=== PATIENT | female | born 1950 | race Caucasian/White ===

== ENCOUNTER 2016-07-30 01:30 | Emergency (ER) | payer MEDICARE, BC ==
[2016-07-30] MEDS ORDERED: NITROGLYCERIN OINT 1 INCH/GM PACKET TOPICAL STA (02:26)
[2016-07-30 02:48] LABS: Basophils # (A) 0.1 k/uL (0-0.2); Basophils % (A) 1 %; CH 30.4; Eosinophils # (A) 0.3 k/uL (0-0.7); Eosinophils % (A) 4 %; HDW 2.36; HGB 15.7 gm/dL (11.4-16.0); Luc # (Auto) 0.26; Luc % (Auto) 4; Lymphocytes # (A) 1.8 k/uL (1.0-4.8); Lymphocytes % (A) 24 %; MCHC 33.4 g/dL (31.0-37.0); MCV 89.8 fL (80.0-100.0); Mean Platelet Volume 7.8; Monocytes # (A) 0.6 k/uL (0-1.0); Monocytes % (A) 8 %; Neutrophils # (A) 4.3 k/uL (1.3-7.7); Neutrophils % (A) 60 %; RBC 5.24 m/uL (3.80-5.40); RDW 12.6 % (11.5-15.5); WBC 7.2 k/uL (3.8-10.6); WBC (Perox) 7.19
--- NOTE | 2016-07-30 03:15 | ED ---
Chest Pain HPI - General Chief Complaint: Chest Pain Stated Complaint: chest pains Time Seen by Provider: 07/30/16 01:56 Source: patient Mode of arrival: wheelchair Limitations: no limitations - History of Present Illness Initial Comments: She has abdominal pain as well as chest pain off and on for the last 1 month she was about a month ago in [facility]. She denies any cough denies any nausea no vomiting no cold sweats denies any fever or chills denies any trauma to the chest. She does complain about some discomfort in the epigastric area as well as in now middle of the chest saying it does get worse when she takes a deep breath his review of system is unremarkable - Related Data Home Medications Medication Instructions Recorded Confirmed Baclofen [Lioresal] 5 mg PO TID 07/30/16 07/30/16 Esomeprazole Magnesium [NexIUM] 20 mg PO DAILY 07/30/16 07/30/16 Furosemide [Lasix] 5 mg PO DAILY 07/30/16 07/30/16 Solifenacin Succinate [Vesicare] 5 mg PO 07/30/16 Allergies Allergy/AdvReac Type Severity Reaction Status Date / Time codeine Allergy Unknown Verified 07/30/16 01:38 Review of Systems ROS Statement: Those systems with pertinent positive or pertinent negative responses have been documented in the HPI. ROS Other: All systems not noted in ROS Statement are negative. EKG Findings - EKG Comments: EKG Findings:: Review of this EKG shows normal sinus rhythm ventricular rate is 65 NJ interval is 174 QRS duration is 86 QT/QTc is 428/440 fall no recent T- wave inversion and numb V1 and V2 no ST elevation or ST depression noticed in of the leads Past Medical History Additional Past Medical History / Comment(s): parapalegic History of Any Multi-Drug Resistant Organisms: None Reported Past Surgical History: Appendectomy, Cholecystectomy, Hysterectomy Additional Past Surgical History / Comment(s): right leg vein stripping Past Psychological History: No Psychological Hx Reported Smoking Status: Former smoker Past Alcohol Use History: None Reported Past Drug Use History: None Reported General Exam - General Exam Comments Initial Comments: General: The patient is awake and alert, in no distress, and does not appear acutely ill. Skin: Skin is warm and dry and no rashes or lesions are noted. Eye: Pupils are equal, round and reactive to light, extra-ocular movements are intact; there is normal conjunctiva bilaterally. Ears, nose, mouth and throat: There are moist mucous membranes and no oral lesions. Neck: The neck is supple, there is no tenderness or JVD. Cardiovascular: There is a regular rate and rhythm. No murmur, rub or gallop is appreciated. Respiratory: To auscultation bilateral, no wheezing no rhonchi no distress respiratory alvarez noticed Gastrointestinal: Mild tender in epigastric area, positive bowel sounds no guarding no rebounds Back: There is no tenderness to palpation in the midline. There is no obvious deformity. Musculoskeletal: Normal ROM, no tenderness, There is no pedal edema. There is no calf tenderness or swelling. No cords were appreciated. Neurological: CN II-XII intact, Cranial nerves III through XII are intact. There are no obvious motor or sensory deficits. Coordination appears grossly intact. Speech is normal. Psychiatric: Cooperative, appropriate mood & affect, normal judgment. Limitations: no limitations Course Vital Signs 07/30/16 01:33 Temperature 97.9 F Pulse Rate 76 Respiratory 18 Rate Blood Pressure 127/64 O2 Sat by Pulse 94 L Oximetry She was reassessed 3 times last time she was reassessed there was a 4:15 the morning totally pain-free d-dimer, CBC, compressive metabolic panel, troponin, LFTs, chest x-ray and KUB are unremarkable, considering her risk factors she was offered to stay in the hospital for observation and serial cardiac markers the opportunity to see the youth support worker she preferred to see an outpatient and she said Dr. Hernandez is doing a stress test in next few days she is quite content with that and she also promises she will call the youth support worker but she did not like the idea to come in for serial cardiac markers as observation in patient Disposition Clinical Impression: Chest pain, Epigastric pain Disposition: HOME SELF-CARE Condition: Good Instructions: Chest Pain (ED) Additional Instructions: She is advised to return to the ER if symptoms get worse, otherwise call cardiology office first thing in the morning to set up a appointment with him Referrals: Osbaldo Hernandez MD [Primary Care Provider] - 1-2 days Mellissa Crespo MD [STAFF PHYSICIAN] - 1-2 days
--- NOTE | 2016-07-30 03:17 | XR ---
EXAM: XR Chest, 2 Views. CLINICAL HISTORY: Reason: Chest Pain TECHNIQUE: Frontal and lateral views of the chest. COMPARISON: No relevant prior studies available. FINDINGS: Limitations: Examination is inherently limited by the patient's body habitus. Lungs: The lungs are grossly free of focal infiltrate. Pleural space: Unremarkable. No pneumothorax. Heart: There is mild cardiomegaly. Mediastinum: Mild aortic ectasia. Bones/joints: Osteopenia and multilevel degenerative changes. IMPRESSION: Limited, without definite acute intrathoracic abnormality seen.
--- NOTE | 2016-07-30 03:19 | XR ---
EXAM: XR Abdomen, 1 View. CLINICAL HISTORY: Reason: Pain TECHNIQUE: Frontal supine view of the abdomen/pelvis. COMPARISON: No relevant prior studies available. FINDINGS: Limitations: Examination is inherently limited by the patient's body habitus. 2 images were provided, the lower is labeled supine, the other centered more superiorly is not labeled as to positioning. Intraperitoneal space: There is some air seen within colon, admixed with stool in the right colon and within the pelvis. No grossly dilated loops or gross free air seen on this limited exam. Gastrointestinal tract: See above. Organs: Right upper quadrant clips suggest cholecystectomy. Bones/joints: Leftward curvature of the upper lumbar spine with osteopenia multilevel degenerative changes. Smooth marginated contour deformity of several right anterior lower ribs may be the result of old healed fractures. IMPRESSION: Limited exam, without gross evidence of intestinal obstruction seen. The findings could be correlated and followed clinically to guide further imaging follow-up if clinically indicated.
[2016-07-30 03:20] LABS: Creatine Kinase 80 U/L (30-135)
[2016-07-30 03:32] LABS: Creatine Kinase MB 1.2 ng/mL (0.0-2.4); Troponin I <0.012 ng/mL (0.000-0.034)
[2016-07-30 03:53] LABS: ALT 40 U/L (9-52); AST 35 U/L (14-36); Alkaline Phosphatase 106 U/L (38-126); Amylase 36 U/L (30-110); Anion Gap 10 mmol/L; Blood Urea Nitrogen 11 mg/dL (7-17); Calcium 9.2 mg/dL (8.4-10.2); Carbon Dioxide 23 mmol/L (22-30); Chloride 107 mmol/L (98-107); Digoxin <0.4 ng/mL; Glucose 100 mg/dL (74-99); Non-African American GFR(MDRD) >60 (>60 ml/min/1.73 sqM); Potassium 4.2 mmol/L (3.5-5.1); Sodium 140 mmol/L (137-145); Total Bilirubin 0.6 mg/dL (0.2-1.3); Total Protein 6.8 g/dL (6.3-8.2)
[2016-07-30 04:02] LABS: Partial Thromboplastin Time 24.3 sec (22.0-30.0); Prothrombin Time 10.3 sec (9.0-12.0)
[2016-07-30 05:25] VITALS: BP 129/77; PULSE 74; RESP 16; TEMP 98.1
== END 2016-07-30 05:24 | disposition home or self-care (01) ==
LOC: EC 01:30
DX: R07.9 Chest pain, unspecified (principal); R10.13 Epigastric pain; Z79.899 Other long term (current) drug therapy; Z87.891 Personal history of nicotine dependence; Z88.5 Allergy status to narcotic agent; G82.20 Paraplegia, unspecified
CPT/HCPCS: 36415; 71020; 74000; 80053; 80162; 82150; 82550; 82553; 83690; 83735; 83880; 84484; 85025; 85379; 85610; 85730; 93005; 99285

== ENCOUNTER → 2016-08-09 | Outpatient (CLI) | payer MEDICARE, BC ==
[~2016-08-09] MED LIST: REGADENOSON 0.4 MG/5 ML SYRINGE IV ONE
--- NOTE | 2016-08-09 12:11 | NM ---
EXAMINATION TYPE: NM stress lexiscan cardiolite DATE OF EXAM: 08/09/2016 11:54 AM COMPARISON: Nuclear medicine Lexiscan stress test December 17, 2011. HISTORY: Chest pain not further specified per order. TECHNIQUE: After the intravenous administration of 10.3 mCi Tc 99m Sestamibi - Cardiolite resting SP ECT images acquired 70 minutes post injection. The patient received 0.4mg Lexiscan, 27.4 mCi Tc 99m Sestamibi - Stress images obtained [address] injection FINDINGS: Review of stress and rest SPECT images demonstrates poor uptake involving the apex on rest and stress SPECT images suggestive of old infarct at this level. There is no convincing evidence for reversibl e ischemia. Gated analysis shows normal wall motion with an estimated left ventricular ejection fract ion of 56 % on rest images. IMPRESSION: No convincing scintigraphic evidence for reversible ischemia.
--- NOTE | 2016-08-09 14:22 | EST ---
DATE OF SERVICE: AGE: 65Y SEX: F HT: 65" WT: 165 lbs. Protocol Ousmane: Other: Stage: Dur. of Exercise: *Heart Rate Blood Pressure *Rest: 70 Rest: 149/97 * *Max. Achieved: 107 Maximum BP: 144/84 85% PMHR: 100% PMHR: *METS: INDICATIONS: Chest pain. MEDICATIONS: See list. Lexiscan Cardiolite study was performed. Peak heart rate of 105 was achieved. Maximum blood pressure 144/84 mm of mercury was noted. Resting EKG shows normal sinus rhythm with normal PA interval and QRS duration and normal ST-T waves. No ST segment depression suggestive of ischemia is noted. The results of the nuclear study will follow.
== END | disposition home or self-care (01) ==
LOC: RADNMMAIN 09:01
PROVIDERS: ATTEND Internal Medicine
DX: R07.9 Chest pain, unspecified (principal)
CPT/HCPCS: 93017; 78452; A9500; J2785

== ENCOUNTER 2017-04-07 12:37 | Emergency (ER) | payer MEDICARE, BC ==
[2017-04-07] MEDS ORDERED: SODIUM CHLORIDE 0.9% 500 ML IV STA (12:52)
[2017-04-07] MEDS ORDERED: RX INFO: IV CONTRAST WAS GIVEN 1 EACH MISC MISCELLANE PRN (13:05)
[2017-04-07 13:37] LABS: Basophils # (A) 0.1 k/uL (0-0.2); Basophils % (A) 1 %; CH 29.7; CHCM 33.1; Eosinophils # (A) 0.3 k/uL (0-0.7); Eosinophils % (A) 3 %; HCT 48.3 % (34.0-46.0); HGB 15.4 gm/dL (11.4-16.0); Luc # (Auto) 0.18; Luc % (Auto) 2; Lymphocytes # (A) 1.3 k/uL (1.0-4.8); Lymphocytes % (A) 14 %; MCH 28.8 pg (25.0-35.0); MCHC 31.9 g/dL (31.0-37.0); MCV 90.2 fL (80.0-100.0); Mean Platelet Volume 7.3; Monocytes # (A) 0.8 k/uL (0-1.0); Monocytes % (A) 9 %; Neutrophils # (A) 6.5 k/uL (1.3-7.7); Neutrophils % (A) 72 %; RBC 5.36 m/uL (3.80-5.40); RDW 14.4 % (11.5-15.5); WBC (Perox) 9.25
[2017-04-07 13:46] LABS: ALT 42 U/L (9-52); AST 42 U/L (14-36); Alkaline Phosphatase 121 U/L (38-126); Amorphous Sediment,Urine Rare /hpf; Amylase 42 U/L (30-110); Anion Gap 11 mmol/L; Appearance,Urine Cloudy (Clear); Bacteria,Urine Rare /hpf; Bilirubin,Urine Negative (Negative); Blood Urea Nitrogen 10 mg/dL (7-17); Calcium 9.5 mg/dL (8.4-10.2); Calcium Oxalate Crystals,Urine Occasional /hpf; Carbon Dioxide 23 mmol/L (22-30); Chloride 106 mmol/L (98-107); Glucose 99 mg/dL (74-99); Glucose,Urine (UA) Negative (Negative); Ketones,Urine Trace (Negative); Leukocyte Esterase,Urine Moderate (Negative); Mucus,Urine Rare /hpf; Nitrite,Urine Negative (Negative); Non-African American GFR(MDRD) >60 (>60 ml/min/1.73 sqM); Particle Count 55220; Potassium 4.3 mmol/L (3.5-5.1); Protein,Urine Trace (Negative); RBC,Urine <1 /hpf (0-5); Sodium 140 mmol/L (137-145); Specific Gravity,Urine 1.015 (1.001-1.035); Squamous Epithelial Cell,Urine 2 /hpf (0-4); Total Bilirubin 0.6 mg/dL (0.2-1.3); Total Protein 7.4 g/dL (6.3-8.2); Triple Phosphate Crystal,Urine Rare /hpf; UA Billing (MACRO vs. MICRO) MICRO; Urobilinogen,Urine <2.0 mg/dL (<2.0); WBC,Urine 2 /hpf (0-5)
[2017-04-07 13:49] LABS: Partial Thromboplastin Time 24.1 sec (22.0-30.0); Prothrombin Time 10.5 sec (9.0-12.0)
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
[2017-04-07 14:22] VITALS: RESP 18
--- NOTE | 2017-04-07 15:06 | CT ---
EXAMINATION TYPE: CT abdomen pelvis w con DATE OF EXAM: 04/07/2017 HISTORY: Left side abdominal pain x1 week. CT DLP: 1219.7mGycm Automated Exposure Control for Dose Reduction was Utilized. CONTRAST: CT scan of the abdomen and pelvis is performed without oral but with IV Contrast, patient injected wi th 100 mL of Omnipaque 300. COMPARISON: None. FINDINGS: LUNG BASES: There is mild pleural thickening medially left lung base there is some patchy bibasilar l inear scarring and/or atelectasis. There is posterior medial pleural thickening or atelectasis right lung base. LIVER/GB: Cholecystectomy clips are seen. PANCREAS: There is fairly moderate fat replaced atrophy at level of inferior head and uncinate proces s. SPLEEN: No significant abnormality is seen. ADRENALS: No significant abnormality is seen. KIDNEYS: There is exophytic simple appearing 5.8 cm cyst lower pole level right kidney. Perry cathete r is seen within decompressed bladder. BOWEL: There is small to moderate size hiatal hernia. UTERUS/ADNEXA: Uterus is surgically absent or markedly atrophic in appearance. LYMPH NODES: No greater than 1cm abdominal or pelvic lymph nodes are appreciated. There is mild hazin ess or fat stranding in the left-sided mesentery with few slightly prominent but tiny mesenteric lymp h nodes. OSSEOUS STRUCTURES: Osseous structures are demineralized. Underlying scoliosis is present. There is l arge bridging osteophyte L1-L2 level. There is mild height loss L1 level. There is mild/moderate heig ht loss L2 level. 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 OTHER: There is mild calcified plaque of aorta extending into branch vessels. IMPRESSION: 1. There is left-sided isidra mesentery appearance consistent with mesenteric panniculitis, differenti al includes infectious and inflammatory etiologies. No well-formed fluid collection or abscess is se en.
[2017-04-07 15:24] VITALS: BP 124/67; PULSE 86; TEMP 97.8
== END 2017-04-07 15:40 | disposition home or self-care (01) ==
LOC: EC 12:37
DX: K65.4 Sclerosing mesenteritis (principal); K21.9 Gastro-esophageal reflux disease without esophagitis; Z90.49 Acquired absence of other specified parts of digestive tract; Z87.891 Personal history of nicotine dependence; Z88.0 Allergy status to penicillin; Z88.5 Allergy status to narcotic agent; Z88.6 Allergy status to analgesic agent; Z91.040 Latex allergy status; Z88.3 Allergy status to other anti-infective agents; Z88.8 Allergy status to other drugs, medicaments and biological substances; Z91.09 Other allergy status, other than to drugs and biological substances; Z79.899 Other long term (current) drug therapy
CPT/HCPCS: 36415; 80053; 82150; 83605; 83690; 85025; 85610; 85730; 81001; 74177; 99284; 96360; Q9967

== ENCOUNTER 2018-11-26 12:35 | Inpatient (IN) | payer BC, MEDICARE ==
[2018-11-26] MEDS ORDERED: NITROGLYCERIN SL TABS 0.4 MG TAB SUBLINGUAL STA ×3 (13:00)
[2018-11-26] MEDS ORDERED: ASPIRIN 81 MG PO STA (13:00)
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
[2018-11-26 13:25] LABS: Basophils # (A) 0.1 k/uL (0-0.2); Basophils % (A) 1 %; Eosinophils # (A) 0.5 k/uL (0-0.7); Eosinophils % (A) 7 %; HCT 46.9 % (34.0-46.0); HGB 15.2 gm/dL (11.4-16.0); Lymphocytes # (A) 1.7 k/uL (1.0-4.8); Lymphocytes % (A) 23 %; MCH 28.5 pg (25.0-35.0); MCHC 32.5 g/dL (31.0-37.0); MCV 87.7 fL (80.0-100.0); Mean Platelet Volume 6.5; Monocytes # (A) 0.6 k/uL (0-1.0); Monocytes % (A) 9 %; Neutrophils % (A) 56 %; Platelet Count 269 k/uL (150-450); RBC 5.34 m/uL (3.80-5.40); RDW 13.1 % (11.5-15.5); WBC 7.1 k/uL (3.8-10.6)
--- NOTE | 2018-11-26 13:31 | XR ---
EXAMINATION TYPE: XR chest 2V DATE OF EXAM: 11/26/2018 HISTORY: Chest Pain. REFERENCE: Previous study dated 07/30/2016. FINDINGS: Heart size upper limits of normal. There is thickening of the minor fissure on the right. T here is atelectatic change at both lung bases. Pleural spaces appear clear. IMPRESSION: 1. BORDERLINE CARDIOMEGALY. 2. BIBASILAR ATELECTASIS.
[2018-11-26 13:40] LABS: ALT 28 U/L (9-52); AST 35 U/L (14-36); African American GFR (CKD) >90 (>60 ml/min/1.73 sqM); Albumin 4.2 g/dL (3.5-5.0); Alkaline Phosphatase 116 U/L (38-126); Anion Gap 8 mmol/L; Blood Urea Nitrogen 12 mg/dL (7-17); Calcium 9.4 mg/dL (8.4-10.2); Carbon Dioxide 27 mmol/L (22-30); Chloride 105 mmol/L (98-107); Glucose 108 mg/dL (74-99); Magnesium 2.3 mg/dL (1.6-2.3); Potassium 4.5 mmol/L (3.5-5.1); Sodium 140 mmol/L (137-145); Total Bilirubin 0.6 mg/dL (0.2-1.3); Total Protein 7.4 g/dL (6.3-8.2)
[2018-11-26 14:13] LABS: Partial Thromboplastin Time 24.1 sec (22.0-30.0); Prothrombin Time 10.5 sec (9.0-12.0)
[2018-11-26 14:23] LABS: D-Dimer 0.69 mg/L FEU (<0.60)
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
[2018-11-26] MEDS ORDERED: FUROSEMIDE 20 MG TAB PO PRN (15:22)
[2018-11-26] MEDS ORDERED: methylPREDNISolone SOD SUCCI 125 MG/2 ML VIAL IV STA (15:29)
[2018-11-26] MEDS ORDERED: FAMOTIDINE 20 MG/2 ML VIAL IV STA (15:29)
[2018-11-26] MEDS ORDERED: diphenhydrAMINE 50 MG/ML 1 ML VIAL IVP STA (15:29)
[2018-11-26] MEDS ORDERED: NITROGLYCERIN SL TABS 0.4 MG TAB SUBLINGUAL PRN (15:30)
--- NOTE | 2018-11-26 17:20 | CT ---
EXAMINATION TYPE: CT angio chest DATE OF EXAM: 11/26/2018 4:49 PM COMPARISON: None HISTORY: chest pain CT DLP: 537.1 mGycm Automated exposure control for dose reduction was used. CONTRAST: CTA scan of the thorax is performed with IV Contrast, patient injected with 87cc mL of Isovue 370, pu lmonary embolism protocol. There are 3-D post processed images.. FINDINGS: There is a large hiatal hernia. There is patchy atelectasis and fibrotic changes at the lung bases. H eart size is top normal. There is no pericardial effusion. There are a few mediastinal and peritracheal lymph nodes that measure up to 1.5 cm. There are right b ronchial lymph nodes that measure 1.7 cm. There is normal contrast opacification of the pulmonary arteries. I see no filling defects. Thoracic aorta shows no dissection. There is 4.2 cm aneurysm of the ascending aorta. There is compression deformity of L1 and L2 up to 50%. There is 70% compression deformity of T8. Ther e is osteopenia. IMPRESSION: NO EVIDENCE OF PULMONARY EMBOLISM. MEDIASTINAL AND BRONCHIAL ADENOPATHY. MILD CARDIOMEGALY. LARGE HIATAL HERNIA. MULTIPLE COMPRESSION FRACTURES.
[2018-11-26] MEDS: NITROGLYCERIN OINT 1 INCH/GM PACKET TOPICAL SCH ×2 (19:05→22:09)
[2018-11-26] MEDS: BACLOFEN 10 MG TAB PO SCH (20:30)
[2018-11-26] MEDS ORDERED: MAG HYDROX/AL HYDROX/SIMETH 30 ML CUP PO PRN (21:54)
[2018-11-26] MEDS: PANTOPRAZOLE 40 MG TABLET PO SCH (22:09)
[2018-11-27 03:32] LABS: Cholesterol 164 mg/dL (<200); HDL Cholesterol 46 mg/dL (40-60); LDL Cholesterol,Calculated 88 mg/dL (0-99); Triglycerides 152 mg/dL (<150)
[2018-11-27] MEDS: PANTOPRAZOLE 40 MG TABLET PO SCH (05:58)
[2018-11-27] MEDS: NITROGLYCERIN OINT 1 INCH/GM PACKET TOPICAL SCH ×4 (05:58→22:21)
[2018-11-27] MEDS: ASPIRIN 325 MG TAB PO SCH (08:29)
[2018-11-27] MEDS: OXYBUTYNIN XL 5 MG TAB.ER.24 PO SCH (08:29)
[2018-11-27] MEDS: BACLOFEN 10 MG TAB PO SCH ×2 (08:29→20:07)
[2018-11-27] MEDS: ASCORBIC ACID 500 MG TAB PO SCH (08:29)
[2018-11-27] MEDS ORDERED: HYDROmorphone 1 MG/ML 1 ML SYRINGE IVP PRN (09:30)
[2018-11-27] MEDS ORDERED: HYDROmorphone 0.5 MG/0.5 ML SYRINGE IVP PRN (09:30)
[2018-11-27] MEDS: IOPAMIDOL-300 CONTRAST 30 ML VIAL (ORAL USE) PO PRN ×2 (09:56→11:09)
[2018-11-27 10:00] LABS: HCT 43.4 % (34.0-46.0); HGB 14.6 gm/dL (11.4-16.0); MCHC 33.7 g/dL (31.0-37.0); Mean Platelet Volume 6.7; Platelet Count 261 k/uL (150-450); RBC 4.87 m/uL (3.80-5.40); RDW 13.2 % (11.5-15.5); WBC 12.3 k/uL (3.8-10.6)
[2018-11-27 10:11] LABS: ALT 29 U/L (9-52); AST 35 U/L (14-36); African American GFR (CKD) >90 (>60 ml/min/1.73 sqM); Albumin 3.7 g/dL (3.5-5.0); Alkaline Phosphatase 114 U/L (38-126); Anion Gap 7 mmol/L; Blood Urea Nitrogen 9 mg/dL (7-17); Calcium 9.2 mg/dL (8.4-10.2); Carbon Dioxide 26 mmol/L (22-30); Chloride 107 mmol/L (98-107); Glucose 97 mg/dL (74-99); Lipase 35 U/L (23-300); Potassium 4.1 mmol/L (3.5-5.1); Sodium 140 mmol/L (137-145); Total Bilirubin 0.8 mg/dL (0.2-1.3); Total Protein 6.6 g/dL (6.3-8.2)
--- NOTE | 2018-11-27 12:22 | CT ---
EXAMINATION TYPE: CT abdomen pelvis wo con DATE OF EXAM: 11/27/2018 COMPARISON: None HISTORY: 68-year-old female Chest pain, Fullness left umbilicus CT DLP: 757.9 mGycm. Automated exposure control for dose reduction was used. TECHNIQUE: Contiguous axial scanning of the abdomen and pelvis without IV contrast. Coronal and sagit edith reconstructions performed. FINDINGS: Heart normal size without pericardial effusion. Focal volume loss posteromedial right base probably s ome type of chronic postinflammatory sequela. No pleural effusion. There is a large hiatal hernia containing approximately a third to half of the stomach. Along the right lower paraesophageal region, there is a 3.9 x 2.1 cm ovoid area of soft tissue densit y, reference axial image 7 and coronal image 70. Noncontrast appearance of the liver, adrenal glands, spleen, and atrophic pancreas shows no gross abn ormality. 4 mm nonobstructive right renal calculus. There is a lobulated cyst at the right lower pole measuring up to 6.9 cm. No hydronephrosis is identified. There is some calcification seen along the course of the right urete r suspected direct represent adjacent phleboliths rather than ureteral calculi given the lack of hydr onephrosis. Nonobstructive 2 mm left renal calculus. Artifacts due to patient's large body habitus and electronic device within the field of view casting metal hardware artifact. Mild atherosclerotic calcifications abdominal aorta without aneurysm. No dilated small bowel, free fluid, or free air. No mesenteric or retroperitoneal lymphadenopathy. Mild Central isidra mesentery. Again, no lymphadenopathy seen. Moderate stool burden. No pericolonic inflammatory change. Oral contrast progressed to the cecum. Multiple pelvic phleboliths. Perry catheter is present in the bladder. There is mild circumferential bladder wall thickening. Could represent chronic bladder wall hypertrophy. Some intraluminal air like ly from instrumentation. Uterus surgically absent. Neither ovary is visualized. No abnormal fluid col lection in the pelvis or pelvic lymphadenopathy. There is a levoconvex scoliosis. Vertebral compression deformities of L2 and T8. Additional superior endplate deformity of L1. Findings compatible with age indeterminate compression injuries, likely chr onic given the lack of any paravertebral soft tissue swelling. IMPRESSION: 1. Bilateral nonobstructive renal calculi measuring up to 4 mm. Punctate calcifications are present along the course of the right ureter, felt to represent adjacent phleboliths rather than ureteral rajinder culi given the lack of hydronephrosis. 2. Mild central isidra mesentery is nonspecific but may be seen with mesenteric panniculitis. 3 - 6 m ont follow-up CT can reassess. 3. Moderate to large size hiatal hernia involving approximately third to half of the stomach. 4. Ovoid 3.9 x 2.1 cm soft tissue density in the lower right paraesophageal region. Some entrapped, herniated mesenteric fluid or abnormal lymphadenopathy are in the differential. Consider CT chest wit hout and with contrast to assess for any potential enhancement. 5. Mild circumferential bladder wall thickening. Correlate to exclude cystitis. A Perry catheter is in place.
[2018-11-27] MEDS ORDERED: ACETAMINOPHEN TAB 325 MG TAB PO PRN (14:29)
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
[2018-11-28] MEDS: NITROGLYCERIN OINT 1 INCH/GM PACKET TOPICAL SCH ×4 (04:46→22:16)
[2018-11-28 06:44] LABS: HCT 42.4 % (34.0-46.0); HGB 13.6 gm/dL (11.4-16.0); MCV 90.5 fL (80.0-100.0); Mean Platelet Volume 7.1; Platelet Count 248 k/uL (150-450); RBC 4.69 m/uL (3.80-5.40); RDW 13.2 % (11.5-15.5); WBC 8.3 k/uL (3.8-10.6)
[2018-11-28 06:52] LABS: ALT 25 U/L (9-52); AST 34 U/L (14-36); African American GFR (CKD) >90 (>60 ml/min/1.73 sqM); Albumin 3.4 g/dL (3.5-5.0); Alkaline Phosphatase 98 U/L (38-126); Anion Gap 6 mmol/L; Blood Urea Nitrogen 9 mg/dL (7-17); Calcium 8.7 mg/dL (8.4-10.2); Carbon Dioxide 26 mmol/L (22-30); Chloride 108 mmol/L (98-107); Glucose 94 mg/dL (74-99); Potassium 3.9 mmol/L (3.5-5.1); Sodium 140 mmol/L (137-145); Total Bilirubin 0.7 mg/dL (0.2-1.3); Total Protein 6.1 g/dL (6.3-8.2)
[2018-11-28] MEDS: PANTOPRAZOLE 40 MG TABLET PO SCH (07:44)
[2018-11-28] MEDS: ASCORBIC ACID 500 MG TAB PO SCH (07:44)
[2018-11-28] MEDS: BACLOFEN 10 MG TAB PO SCH ×2 (07:44→15:46)
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
[2018-11-28] MEDS ORDERED: LIDOCAINE 1% INJ 10MG/ML (20 ML MDV) ONE (11:58)
[2018-11-28] MEDS ORDERED: PROPOFOL 10 MG/ML 20 ML VIAL IV ONE (11:58)
[2018-11-28] MEDS ORDERED: LACTATED RINGERS 1,000 ML IV ONE (12:03)
--- NOTE | 2018-11-28 12:20 | P.OP ---
Date of Procedure: 11/28/18 Preoperative Diagnosis: GERD Hiatal hernia Postoperative Diagnosis: GERD Hiatal hernia Procedure(s) Performed: EGD Anesthesia: MAC Surgeon: Bowen Amato Pathology: other (Antrum) Condition: stable Disposition: PACU Description of Procedure: The patient's placed on the endoscopy table in the lateral position. She received IV sedation. The gastroscope placed oropharynx passed in the esophagus and into the stomach. Scope was placed through the pylorus. The first and second portion of the duodenum appeared normal. The scope was then brought back the antrum and this appeared inflamed a biopsies performed. The scope was then retroflexed and there was a large hiatal hernia seen. Approximately half is some appeared to be in the intrathoracic position. The GE junction was at 33 cm. The distal esophagus appeared inflamed. The proximal esophagus appeared normal. Scope was withdrawn for patient.
[2018-11-28] MEDS: ASPIRIN 325 MG TAB PO SCH (15:46)
[2018-11-28] MEDS: OXYBUTYNIN XL 5 MG TAB.ER.24 PO SCH (15:46)
[2018-11-29] MEDS: NITROGLYCERIN OINT 1 INCH/GM PACKET TOPICAL SCH ×2 (04:26→11:16)
[2018-11-29] MEDS: PANTOPRAZOLE 40 MG TABLET PO SCH (07:02)
[2018-11-29 07:38] LABS: Basophils # (A) 0.1 k/uL (0-0.2); Basophils % (A) 1 %; Eosinophils # (A) 0.5 k/uL (0-0.7); Eosinophils % (A) 7 %; HCT 46.6 % (34.0-46.0); HGB 14.8 gm/dL (11.4-16.0); Lymphocytes # (A) 1.5 k/uL (1.0-4.8); Lymphocytes % (A) 20 %; MCH 28.8 pg (25.0-35.0); MCHC 31.8 g/dL (31.0-37.0); MCV 90.7 fL (80.0-100.0); Mean Platelet Volume 6.9; Monocytes # (A) 0.7 k/uL (0-1.0); Monocytes % (A) 9 %; Neutrophils # (A) 4.6 k/uL (1.3-7.7); Neutrophils % (A) 61 %; Platelet Count 265 k/uL (150-450); RBC 5.13 m/uL (3.80-5.40); RDW 13.3 % (11.5-15.5); WBC 7.6 k/uL (3.8-10.6)
[2018-11-29 07:59] LABS: ALT 27 U/L (9-52); AST 40 U/L (14-36); African American GFR (CKD) >90 (>60 ml/min/1.73 sqM); Albumin 3.5 g/dL (3.5-5.0); Alkaline Phosphatase 102 U/L (38-126); Anion Gap 9 mmol/L; Blood Urea Nitrogen 10 mg/dL (7-17); Calcium 8.8 mg/dL (8.4-10.2); Carbon Dioxide 24 mmol/L (22-30); Chloride 106 mmol/L (98-107); Glucose 84 mg/dL (74-99); Potassium 4.2 mmol/L (3.5-5.1); Sodium 139 mmol/L (137-145); Total Bilirubin 0.8 mg/dL (0.2-1.3); Total Protein 6.5 g/dL (6.3-8.2)
[2018-11-29] MEDS: ASCORBIC ACID 500 MG TAB PO SCH (08:35)
[2018-11-29] MEDS: ASPIRIN 325 MG TAB PO SCH (08:35)
[2018-11-29] MEDS: BACLOFEN 10 MG TAB PO SCH (08:35)
[2018-11-29] MEDS: OXYBUTYNIN XL 5 MG TAB.ER.24 PO SCH (08:35)
--- NOTE | 2018-11-29 09:35 | P.DS ---
Providers Date of admission: 11/28/18 10:45 Attending physician: Marixa Islas MD Consults: 11/27/18 12:34 Consult Physician Routine Consulting Provider: Bowen Amato Consult Reason/Comments: Hiatal hernia Do you want consulting provider notified?: Yes Primary care physician: Osbaldo [facility] Course: 68-year-old female admitted to the hospital initially with chest pain was thought to be mainly epigastric pain and tenderness in the stomach patient continued to have abdominal pain GI has been consulted and patient was admitted to the hospital but no evidence of acute coronary syndrome during this hospital stay the patient today feels that the abdominal pain completely resolved doesn't have any chest pain or shortness of breath wants to go home During the hospital stay the patient remained stable underwent EGD Patient to have total hernia and consider for repair as an outpatient Constitutional: No acute distress, conversant, pleasant Eyes: Anicteric sclerae, moist conjunctiva, no lid-lag PERRLA ENMT: NC/AT Oropharynx clear, no erythema, exudates Neck: Supple, FROM, no masses, or JVD No carotid bruits No thyromegaly Lungs: Clear to auscultation Clear to percussion Normal respiratory effort, no accessory muscle use Cardiovascular: Heart regular in rate and rhythm, No murmurs, gallops, or rubs No peripheral edema Abdominal: Soft Nontender, no guarding, rebound or rigidity Abdomen moving with respiration Normoactive bowel sounds No hepatomegaly, No splenomegaly No palpable mass No abdominal wall hernia noted Skin: Normal temperature, tone, texture, turgor No induration No subcutaneous nodules No rash, lesions No ulcers Extremities: No digital cyanosis No clubbing Pedal pulses intact and symmetrical Radial pulses intact and symmetrical Normal gait and station No calf tenderness Psychiatric:Alert and oriented to person, place and time Appropriate affect Intact judgement Neuro: Generalized weakness Discharge diagnoses and plan Abdominal pain likely due to reactive hernia patient to follow-up with GI consider repair as an outpatient No evidence of acute coronary syndrome Patient to follow-up with primary care physician Paraplegia Patient has been discharged in a stable condition Patient Condition at Discharge: Good Plan - Discharge Summary Discharge Rx Participant: Yes New Discharge Prescriptions: No Action Furosemide [Lasix] 20 mg PO DAILY PRN PRN Reason: Edema Baclofen [Lioresal] 20 mg PO BID Potassium Chloride ER [K-Dur 10] 10 meq PO DAILY PRN PRN Reason: with lasix Cholecalciferol [Vitamin D3] 1,000 unit PO DAILY Cyanocobalamin (Vitamin B-12) [Vitamin B-12] 1,000 mcg PO DAILY Diphenox-Atrop 2.5-0.025 mg [Lomotil] 1 - 2 tab PO 5XD PRN PRN Reason: Loose Stool Cranberry Fruit Extract [Cranberry] 500 mg PO DAILY Ascorbic Acid [Vitamin C] 500 mg PO DAILY Oxybutynin Xl [Ditropan Xl] 5 mg PO DAILY Omeprazole [PriLOSEC] 10 mg PO DAILY Zinc 50 mg PO DAILY Discharge Medication List Baclofen [Lioresal] 20 mg PO BID 07/30/16 [History] Furosemide [Lasix] 20 mg PO DAILY PRN 07/30/16 [History] Cholecalciferol [Vitamin D3] 1,000 unit PO DAILY 04/07/17 [History] Cyanocobalamin (Vitamin B-12) [Vitamin B-12] 1,000 mcg PO DAILY 04/07/17 [History] Potassium Chloride ER [K-Dur 10] 10 meq PO DAILY PRN 04/07/17 [History] Ascorbic Acid [Vitamin C] 500 mg PO DAILY 11/26/18 [History] Cranberry Fruit Extract [Cranberry] 500 mg PO DAILY 11/26/18 [History] Diphenox-Atrop 2.5-0.025 mg [Lomotil] 1 - 2 tab PO 5XD PRN 11/26/18 [History] Omeprazole [PriLOSEC] 10 mg PO DAILY 11/26/18 [History] Oxybutynin Xl [Ditropan Xl] 5 mg PO DAILY 11/26/18 [History] Zinc 50 mg PO DAILY 11/26/18 [History] Follow up Appointment(s)/Referral(s): Osbaldo Hernandez MD [Primary Care Provider] - 12/04/18 3:30 pm Bowen Amato MD [STAFF PHYSICIAN] - 12/08/18 11:00 am Patient Instructions/Handouts: Chest Pain (DC), Hiatal Hernia (DC), Laparoscopic Hiatal Hernia Repair (DC) Discharge Disposition: HOME SELF-CARE
[2018-11-29 09:40] VITALS: BP 135/73; PULSE 80; RESP 18; TEMP 97.8
[2018-11-29] MEDS ORDERED: DIPHENOX-ATROP 2.5-0.025 MG 1 EACH TAB PO PRN (09:57)
--- NOTE | 2018-11-29 12:24 | P.PN ---
Subjective Progress Note Date: 11/29/18 CHIEF COMPLAINT: hiatal hernia HISTORY OF PRESENT ILLNESS: patient is status post EGD revealing GERD and hiatal hernia. Patient denies abdominal pain this morning. She is tolerating diet. She is anticipating discharge today. PHYSICAL EXAM: VITAL SIGNS: Reviewed. GENERAL: Well-developed in no acute distress. HEENT: No sclera icterus. Extraocular movements grossly intact. Moist buccal mucosa. Head is atraumatic, normocephalic. ABDOMEN: Soft. Nondistended. Nontender. scars to lower abdomen. NEUROLOGIC: Alert and oriented. Cranial nerves II through XII grossly intact. ASSESSMENT: 1. Abdominal pain 2. Moderate to large sized hiatal hernia involving 1/3 to 1/2 stomach PLAN: Patient will be scheduled for hiatal hernia surgery with Dr. Amato on 12/27/[address] Amato, Patient does not require a follow-up appointment with Dr. Amato. Her next visit with Dr. Amato will be the date of her surgery. stable for discharge home today from a surgical standpoint. Nurse practitioner note has been reviewed by physician. Signing provider agrees with the documented findings, assessment, and plan of care. Objective - Vital Signs Vital signs: Vital Signs Temp 97.8 F 11/29/18 08:00 Pulse 80 11/29/18 08:00 Resp 18 11/29/18 08:00 BP 135/73 11/29/18 08:00 Pulse Ox 94 L 11/29/18 08:00 Intake & Output 11/28/18 11/29/18 11/29/18 18:59 06:59 18:59 Intake Total 170 300 Output Total 780 200 Balance -610 300 -200 Weight 86.5 kg Intake: IV 50 Oral 120 300 Output: Urine 780 200 Other: Voiding Method Indwelling Catheter Indwelling Catheter Indwelling Catheter # Bowel Movements 0 1 - Labs CBC & Chem 7: 11/29/18 06:42 11/29/18 06:42 Labs: Abnormal Lab Results - Last 24 Hours (Table) 11/29/18 11/29/18 Range/Units 06:42 06:42 Hct 46.6 H (34.0-46.0) % AST 40 H (14-36) U/L
== END 2018-11-29 13:31 | disposition home or self-care (01) | DRG 392 ==
LOC: EC 12:35 → 3SCARD 15:30 → OBSVTOIN 11-28 10:45
PROVIDERS: ADMIT Internal Medicine; ATTEND Internal Medicine
PROC: 0DB78ZX Excision of Stomach, Pylorus, Via Natural or Artificial Opening Endoscopic, Diagnostic (ICD-10-PCS; principal; 2018-11-28 07:30)
DX: K44.9 Diaphragmatic hernia without obstruction or gangrene (principal); G82.20 Paraplegia, unspecified; K21.9 Gastro-esophageal reflux disease without esophagitis; V89.2XXS Person injured in unspecified motor-vehicle accident, traffic, sequela; I88.0 Nonspecific mesenteric lymphadenitis; Z87.891 Personal history of nicotine dependence; Z90.710 Acquired absence of both cervix and uterus; Z99.3 Dependence on wheelchair; Z88.5 Allergy status to narcotic agent; Z88.0 Allergy status to penicillin; Z88.8 Allergy status to other drugs, medicaments and biological substances; Z88.6 Allergy status to analgesic agent; Z91.040 Latex allergy status; Z79.899 Other long term (current) drug therapy; L89.90 Pressure ulcer of unspecified site, unspecified stage; N90.89 Other specified noninflammatory disorders of vulva and perineum
CPT/HCPCS: 36415; 43239; 71046; 71275; 74176; 80053; 80061; 83690; 83735; 84484; 85025; 85027; 85379; 85610; 85730; 88305; 93005; 94760; 99285

== ENCOUNTER 2021-09-11 18:11 | Emergency (ER) | payer MEDICARE ==
[2021-09-11 18:14] VITALS: BP 125/67; PULSE 99; RESP 20; TEMP 98.7
[2021-09-11 18:49] LABS: Partial Thromboplastin Time 22.2 sec (22.0-30.0); Prothrombin Time 10.9 sec (9.0-12.0)
[2021-09-11 18:51] LABS: ALT 14 U/L (4-34); AST 28 U/L (14-36); African American GFR (CKD) >90 (>60 ml/min/1.73 sqM); Albumin 3.6 g/dL (3.5-5.0); Alkaline Phosphatase 112 U/L (38-126); Anion Gap 6 mmol/L; Blood Urea Nitrogen 14 mg/dL (7-17); Calcium 8.4 mg/dL (8.4-10.2); Carbon Dioxide 24 mmol/L (22-30); Chloride 105 mmol/L (98-107); Glucose 112 mg/dL (74-99); Non-African American GFR(CKD) >90 (>60 ml/min/1.73 sqM); Potassium 3.8 mmol/L (3.5-5.1); Sodium 135 mmol/L (137-145); Total Bilirubin 0.4 mg/dL (0.2-1.3); Total Protein 6.7 g/dL (6.3-8.2)
[2021-09-11 19:17] LABS: Anisocytosis Slight; Basophils # (A) 0.1 k/uL (0-0.2); Basophils % (A) 1 %; Eosinophils # (A) 0.2 k/uL (0-0.7); Eosinophils % (A) 3 %; HCT 26.4 % (34.0-46.0); Hypochromasia Marked; Lymphocytes # (A) 1.7 k/uL (1.0-4.8); Lymphocytes % (A) 25 %; MCH 17.3 pg (25.0-35.0); MCHC 26.4 g/dL (31.0-37.0); MCV 65.3 fL (80.0-100.0); Mean Platelet Volume 6.8; Microcytosis Marked; Monocytes # (A) 0.5 k/uL (0-1.0); Monocytes % (A) 8 %; Neutrophils # (A) 4.2 k/uL (1.3-7.7); Neutrophils % (A) 61 %; Platelet Count 370 k/uL (150-450); Poikilocytosis Slight; RBC 4.05 m/uL (3.80-5.40); RDW 18.9 % (11.5-15.5); WBC 6.9 k/uL (3.8-10.6)
== END 2021-09-11 20:05 | disposition left against medical advice (07) ==
LOC: EC 18:11
DX: Z53.21 Procedure and treatment not carried out due to patient leaving prior to being seen by health care provider (principal)
CPT/HCPCS: 36415; 80053; 85025; 85610; 85730; 99499